=== PATIENT | male | born 1945 | race Caucasian/White ===

== ENCOUNTER 2019-04-11 12:14 | Day surgery (SDC) | payer BC ==
[2019-04-06 08:34] VITALS: BMI 25.1
[2019-04-11] MEDS ORDERED: ceFAZolin Sodium (SDC) 2 GM/100 ML BAG ONE (13:39)
[2019-04-11] MEDS ORDERED: Bupivacaine/Epinephrine 0.25% 30 ML VIAL ONE (14:30)
[2019-04-11] MEDS ORDERED: Fentanyl 100 MCG/2 ML VIAL ONE (14:39)
[2019-04-11] MEDS ORDERED: Famotidine/PF 20 mg/2ml Vial ONE (14:39)
[2019-04-11] MEDS ORDERED: SUGAMMADEX SODIUM 500 MG/5 ML VIAL ONE (15:16)
[2019-04-11] MEDS ORDERED: Lidocaine 1% PF 5 ML VIAL ONE (17:24)
[2019-04-11] MEDS ORDERED: Ketorolac Tromethamine 30 MG/ML VIAL ONE (17:24)
[2019-04-11] MEDS ORDERED: Metoclopramide HCl 10 MG/2 ML VIAL ONE (17:24)
[2019-04-11] MEDS ORDERED: PHENYLEPHRINE-NS 100 MCG/ML 10 ML SYRINGE ONE (17:24)
[2019-04-11] MEDS ORDERED: PROPOFOL 200 MG/20 ML VIAL ONE (17:24)
[2019-04-11] MEDS ORDERED: Rocuronium Bromide 10 MG/ML (10ML VIAL) ONE (17:24)
[2019-04-11] MEDS ORDERED: Ondansetron PF 4 MG/2 ML Vial ONE (17:24)
[2019-04-11] MEDS ORDERED: Dexamethasone 20 MG/5 ML VIAL ONE (17:24)
[2019-04-11] MEDS ORDERED: Glycopyrrolate 0.2 MG/ML 5 ML SYRINGE ONE (17:24)
--- NOTE | 2019-04-11 17:42 | OP ---
DATE OF PROCEDURE: 04/11/2019 PREOPERATIVE DIAGNOSIS: Umbilical hernia. POSTOPERATIVE DIAGNOSIS: Umbilical hernia. PROCEDURE PERFORMED: Umbilical hernia repair with mesh, Ventralex ST, small, 4 cm. ANESTHESIA: General. ESTIMATED BLOOD LOSS: Minimal. COMPLICATIONS: None. SPECIMENS: None. FINDINGS: Umbilical hernia. DESCRIPTION OF PROCEDURE: The patient was taken to the operating room and laid supine on the operating room table. After general anesthetic was obtained, the abdomen was shaved, prepped, and draped in a sterile fashion. A curved incision was made below the umbilicus. Cautery was dissected down to the umbilical stalk. The umbilical stalk was amputated from the fascia exposing umbilical defect. The preperitoneal fat was bluntly dissected back into the preperitoneal space and a preperitoneal space was bluntly dissected from the backside of the abdominal wall. The Ventralex ST mesh was brought into the sterile field. The underlay was placed into the defect. Its tails pulled up laterally against the posterior abdominal wall. The tails were sewn via U-stitch of permanent braided suture laterally, superior and inferiorly. The tails were cut at the level of the fascia. The wound was irrigated. Local anesthetic was applied. The fascia was closed loosely over the mesh using interrupted suture. The umbilical stalk was tacked back down using 3-0 Vicryl. Subcutaneous tissues were closed using 3-0 Vicryl. The skin was closed using 4-0 Monocryl and Dermabond. The patient was sent to Recovery in stable condition. All instrument counts, needle counts, and lap counts were correct. Job ID: [id number]
== END 2019-04-11 17:45 | disposition home or self-care (01) ==
LOC: SDC 12:14
PROVIDERS: ATTEND Surgery
PROC: 0WUF0JZ Supplement Abdominal Wall with Synthetic Substitute, Open Approach (ICD-10-PCS; principal; 2019-04-11)
DX: K42.9 Umbilical hernia without obstruction or gangrene (principal); K21.9 Gastro-esophageal reflux disease without esophagitis; N52.9 Male erectile dysfunction, unspecified; E78.5 Hyperlipidemia, unspecified; Z87.891 Personal history of nicotine dependence; Z88.6 Allergy status to analgesic agent; Z88.8 Allergy status to other drugs, medicaments and biological substances; Z79.82 Long term (current) use of aspirin; Z79.899 Other long term (current) drug therapy
CPT/HCPCS: J0131; J0690; J1100; J1885; J2001; J2405; J2704; J2765; J3010; S0028

== ENCOUNTER 2022-11-17 14:01 | Outpatient (CLI) | payer MEDICARE, OTHER | END 2022-11-17 14:02 | disposition home or self-care (01) | LOC: BICRAD 14:01 | PROVIDERS: ATTEND Physician Assistant | DX: M54.50 Low back pain, unspecified (principal); M47.816 Spondylosis without myelopathy or radiculopathy, lumbar region; M25.78 Osteophyte, vertebrae | CPT/HCPCS: 72100 ==